=== PATIENT | female | born 2000 | race Caucasian/White ===

== ENCOUNTER 2018-02-18 16:50 | Emergency (ER) | payer OTHER, SELFPAY ==
[2018-02-18 18:04] LABS: Absolute Lymphocytes (CBC) 1.6 K/uL (0.7-4.9); Absolute Monocytes 0.4 K/uL (0.1-1.3); Absolute Neutrophil 4.5 K/uL (1.8-8.0); Basophils % 0.6 % (0-1.3); Eosinophils % 1.1 % (0-4.4); Hematocrit 41.1 % (36.0-45.0); Lymphocytes % 23.8 % (15.3-44.8); MCH 32.7 pg (27.0-35.0); MCV 93.4 fL (80-100); MPV 8.5 fL (7.6-11.3); Monocytes % 6.7 % (3.3-12.3)
[2018-02-18 18:20] LABS: Urine Blood 2+ (NEG); Urine Glucose NEGATIVE (NEG); Urine Protein NEGATIVE (NEG); Urine Specific Gravity >1.030 (1.005-1.030); Urine pH 5.5 (5.0-7.0)
[2018-02-18 18:27] LABS: BUN Blood Urea Nitrogen 15 mg/dL (7-18); Bicarbonate 25 mmol/L (21-32); Glucose Level 87 mg/dL (74-106); Potassium 3.6 mmol/L (3.5-5.1); Sodium Level 142 mmol/L (136-145)
[2018-02-18 18:34] LABS: HCG, Quantitative < 1 mIU/mL (1-3)
--- NOTE | 2018-02-18 18:42 | ER ---
Nurse's Notes [facility] Name: Codie Garcia Age: 17 yrs Sex: Female : 2000 Arrival Date: 02/18/2018 Time: 16:51 Bed 18 Private MD: None, None Diagnosis: Other abnormal uterine and vaginal bleeding Presentation: 02/18 16:57 Presenting complaint: Patient states: "I've been thinking i'm for the past two ss weeks" Pt reports 4 positive UPT at home since yesterday. "the problem is I've been spotting since yesterday". Transition of care: patient was not received from another setting of care. Onset of symptoms was February 17, 2018. Risk Assessment: Do you want to hurt yourself or someone else? Patient reports no desire to harm self or others. Initial Sepsis Screen: Does the patient meet any 2 criteria? No. Patient's initial sepsis screen is negative. Does the patient have a suspected source of infection? No. Patient's initial sepsis screen is negative. Care prior to arrival: None. 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 - Social history:: Smoking status: Patient/guardian denies using tobacco. - Ebola Screening: : Patient denies exposure to infectious person Patient denies travel to an Ebola-affected area in the 21 days before illness onset. Screenin:22 Abuse screen: Denies threats or abuse. Nutritional screening: No deficits noted. em Tuberculosis screening: No symptoms or risk factors identified. Fall Risk None identified. Assessment: 17:29 General: Appears in no apparent distress. comfortable, Behavior is calm, cooperative, em Reports had test yesterday and was positive, LMP was 4.5 weeks ago, denies pain. Pain: Denies pain. Neuro: Level of Consciousness is awake, alert, obeys commands, Oriented to person, place, time, situation. Cardiovascular: Capillary refill < 3 seconds Patient's skin is warm and dry. Respiratory: Airway is patent Respiratory effort is even, unlabored, Respiratory pattern is regular, symmetrical. GI: Abdomen is flat. : Urine is clear. Derm: Skin is intact, Skin is pink, warm \\T\\ dry. Musculoskeletal: Range of motion: intact in all extremities. 17:35 General: The previous assessment is accurate. Call light remains within reach. . ss 18:22 Reassessment: Patient appears in no apparent distress at this time. Patient and/or em family updated on plan of care and expected duration. Pain level reassessed. Patient is alert, oriented x 3, equal unlabored respirations, skin warm/dry/pink. 18:50 Reassessment: Patient appears in no apparent distress at this time. Patient and/or em family updated on plan of care and expected duration. Pain level reassessed. Patient is alert, oriented x 3, equal unlabored respirations, skin warm/dry/pink. Vital Signs: 16:59 BP 123 / 74; Pulse 79; Resp 16; Temp 98.4(TE); Pulse Ox 98% ; Height 5 ft. 2 in. ss (157.48 cm); Pain 0/10; 18:47 BP 128 / 76; Pulse 73; Resp 17; Pulse Ox 99% on R/A; Pain 0/10; em ED Course: 16:51 Patient arrived in ED. sb2 16:52 None, None is Private Physician. sb2 16:59 Triage completed. ss 16:59 Arm band placed on left wrist. ss 17:05 Maxwell Green PA is PHCP. cp 17:05 Nick Lebron MD is Attending Physician. cp 17:25 Jignesh Lora LVN is Primary Nurse. em 17:40 Missed attempt(s): 20 gauge in right antecubital area. Bleeding controlled, band aid dh3 applied, catheter tip intact. 17:55 Initial lab(s) drawn, by me, sent to lab. Missed attempt(s): 22 gauge in left dh3 antecubital area. Bleeding controlled, band aid applied, catheter tip intact. 18:22 Patient has correct armband on for positive identification. Placed in gown. Bed in low em position. Call light in reach. Adult w/ patient. 18:22 No provider procedures requiring assistance completed. em 18:49 Patient did not have IV access during this emergency room visit. em Administered Medications: No medications were administered Outcome: 18:41 Discharge ordered by . carolyn 18:49 Discharged to home ambulatory. em 18:49 Condition: good 18:49 Discharge instructions given to patient, Instructed on discharge instructions, follow up and referral plans. Demonstrated understanding of instructions, follow-up care. 18:51 Patient left the ED. em Signatures: Jignesh Lora LVN LVN Carolann Elias RN RN Maxwell Pink, PA PA Shaniqua Shepherd 3 Mary Alvarado sb2
--- NOTE | 2018-02-18 18:42 | EDPHYS ---
Physician Documentation [facility] Name: Codie Garcia Age: 17 yrs Sex: Female : 2000 Arrival Date: 02/18/2018 Time: 16:51 Bed 18 Private MD: None, None ED Physician Nick Lebron HPI: 02/18 17:23 This 17 yrs old Female presents to ER via Ambulatory with complaints of cp Test. 17:23 The patient presents with vaginal bleeding that is spotting. cp 17:23 Onset: The symptoms/episode began/occurred today. The patient's method of control cp includes nothing. Patient presents to ED with concern for possible and reports vaginal spotting. Took 4 home tests that were reportedly positive. 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 - Social history:: Smoking status: Patient/guardian denies using tobacco. - Ebola Screening: : Patient denies exposure to infectious person Patient denies travel to an Ebola-affected area in the 21 days before illness onset. ROS: 17:30 Constitutional: Negative for body aches, chills, fever, poor PO intake. cp 17:30 Eyes: Negative for injury, pain, redness, and discharge. cp 17:30 ENT: Negative for drainage from ear(s), ear pain, sore throat, difficulty swallowing, cp difficulty handling secretions. 17:30 Cardiovascular: Negative for chest pain. 17:30 Respiratory: Negative for cough, shortness of breath, wheezing. 17:30 Abdomen/GI: Negative for abdominal pain, nausea, vomiting, and diarrhea. 17:30 : Positive for vaginal bleeding, Negative for urinary symptoms. 17:30 Skin: Negative for cellulitis, rash. 17:30 Neuro: Negative for dizziness, syncope, near syncope, weakness. 17:30 All other systems are negative. Exam: 17:35 Constitutional: The patient appears in no acute distress, alert, awake, non-toxic, well cp developed, well nourished. 17:35 Head/Face: Normocephalic, atraumatic. cp 17:35 Eyes: Periorbital structures: appear normal, Conjunctiva: normal, no exudate, no cp injection, Lids and lashes: appear normal, bilaterally. 17:35 ENT: External ear(s): are unremarkable, Nose: is normal, Mouth: is normal, Posterior pharynx: is normal, airway is patent. 17:35 Chest/axilla: Inspection: normal, Palpation: is normal, no crepitus, no tenderness. 17:35 Cardiovascular: Rate: normal, Rhythm: regular. 17:35 Respiratory: the patient does not display signs of respiratory distress, Respirations: normal, no use of accessory muscles, no retractions, no splinting, no tachypnea, labored breathing, is not present, Breath sounds: are clear throughout, no decreased breath sounds, no stridor, no wheezing. 17:35 Abdomen/GI: Inspection: abdomen appears normal, Bowel sounds: active, all quadrants, Palpation: abdomen is soft and non-tender, in all quadrants, voluntary guarding, is not appreciated, involuntary guarding, is not appreciated. 17:35 Back: pain, is absent, ROM is normal. 17:35 Skin: cellulitis, is not appreciated, no rash present. 17:35 Neuro: Orientation: to person, place \T\ time. Mentation: is normal, Cerebellar function: cp is grossly normal, Motor: moves all fours, strength is normal, Sensation: no obvious gross deficits. Vital Signs: 16:59 BP 123 / 74; Pulse 79; Resp 16; Temp 98.4(TE); Pulse Ox 98% ; Height 5 ft. 2 in. ss (157.48 cm); Pain 0/10; 18:47 BP 128 / 76; Pulse 73; Resp 17; Pulse Ox 99% on R/A; Pain 0/10; em MDM: 17:05 Patient medically screened. cp 17:30 Differential diagnosis: ectopic , molar preganancy, ovarian cyst, pelvic cp inflammatory disease, urinary tract infection, vaginosis. 18:40 Data reviewed: vital signs, nurses notes, lab test result(s), and as a result, I will cp discharge patient. 18:40 Counseling: I had a detailed discussion with the patient and/or guardian regarding: the cp historical points, exam findings, and any diagnostic results supporting the discharge/admit diagnosis, lab results, to return to the emergency department if symptoms worsen or persist or if there are any questions or concerns that arise at home, Labs reviewed and discussed with patient indicating negative . No complaints of pain or concern for STD. Will discharge to home for continued monitoring. 02/18 17:24 Order name: Quantitative Hcg; Complete Time: 18:38 02/18 17:24 Order name: Abo/rh Typing; Complete Time: 18:18 cp 02/18 18:18 Interpretation: Reviewed. 02/18 17:24 Order name: Basic Metabolic Panel; Complete Time: 18:38 02/18 17:24 Order name: CBC with Diff; Complete Time: 18:18 02/18 18:11 Order name: Urine Dipstick--Ancillary (enter results); Complete Time: 18:38 eb 02/18 18:11 Order name: Urine --Ancillary (enter results); Complete Time: 18:38 02/18 18:38 Interpretation: Reviewed. 02/18 17:24 Order name: Urine Test (obtain specimen); Complete Time: 17:54 02/18 17:24 Order name: Labs collected and sent; Complete Time: 17:55 02/18 17:24 Order name: NPO; Complete Time: 17:54 02/18 17:24 Order name: Urine Dipstick-Ancillary (obtain specimen); Complete Time: 17:54 cp Administered Medications: No medications were administered Disposition: 02/18/18 18:41 Discharged to Home. Impression: Other abnormal uterine and vaginal bleeding. - Condition is Stable. - Discharge Instructions: Abnormal Uterine Bleeding. - Medication Reconciliation Form, Thank You Letter, Antibiotic Education, Prescription Opioid Use form. - Follow up: Private Physician; When: As needed; Reason: if symptoms worsen. - Problem is new. - Symptoms are unchanged. Addendum: 02/19/2018 20:26 Co-signature as Attending Physician, Nick Lebron MD. m a2 Signatures: Dispatcher [employer] EDJignesh Chen, HIDE SORTER HIDE SORTER Carolann Elias RN RN Maxwell Pink PA PA Nick Mercado MD MD dc2 Corrections: (The following items were deleted from the chart) 02/18 18:49 17:24 IV Saline Lock ordered. cp em 18:51 18:41 02/18/2018 18:41 Discharged to Home. Impression: Other abnormal uterine and em vaginal bleeding. Condition is Stable. Forms are Medication Reconciliation Form, Thank You Letter, Antibiotic Education, Prescription Opioid Use. Follow up: Private Physician; When: As needed; Reason: if symptoms worsen. Problem is new. Symptoms are unchanged. cp
== END 2018-02-18 18:51 | disposition home or self-care (01) ==
LOC: ER 16:50
DX: N93.8 Other specified abnormal uterine and vaginal bleeding (principal)
CPT/HCPCS: 36415; 80048; 81003; 81025; 84702; 85025; 86900; 86901; 99283

== ENCOUNTER 2019-04-28 00:31 | Emergency (ER) | payer SELFPAY ==
--- NOTE | 2019-04-28 01:29 | ER ---
Nurse's Notes [facility] Name: Codie Garcia Age: 18 yrs Sex: Female : 2000 Arrival Date: 04/28/2019 Time: 00:34 Bed 24 Private MD: Diagnosis: Nausea with vomiting, unspecified Presentation: 04/28 00:54 Presenting complaint: Patient states: she is having nausea and vomiting. Pt took home test was positive. Pt wanted to know if she really is . Transition of care: patient was not received from another setting of care. Onset of symptoms was April 28, 2019. Risk Assessment: Do you want to hurt yourself or someone else? Patient reports no desire to harm self or others. Initial Sepsis Screen: Does the patient meet any 2 criteria? No. Patient's initial sepsis screen is negative. Does the patient have a suspected source of infection? No. Patient's initial sepsis screen is negative. Care prior to arrival: None. 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 - Social history:: Smoking status: Patient/guardian denies using tobacco. - Ebola Screening: : Patient negative for fever greater than or equal to 101.5 degrees Fahrenheit, and additional compatible Ebola Virus Disease symptoms Patient denies exposure to infectious person. Screenin:56 Abuse screen: Denies threats or abuse. Denies injuries from another. Nutritional screening: No deficits noted. Tuberculosis screening: No symptoms or risk factors identified. Fall Risk None identified. Assessment: 00:56 General: Appears in no apparent distress. Behavior is calm, cooperative, appropriate for age. Pain: Denies pain. Neuro: Level of Consciousness is awake, alert, obeys commands. Cardiovascular: Capillary refill < 3 seconds. Respiratory: Airway is patent Respiratory effort is even, unlabored, Respiratory pattern is regular, symmetrical. GI: Abdomen is flat, non-distended, Abd is soft and non tender X 4 quads. GI: Reports nausea, vomiting. : No signs and/or symptoms were reported regarding the genitourinary system. EENT: No signs and/or symptoms were reported regarding the EENT system. Derm: Skin is intact, is healthy with good turgor, Skin is pink, warm \T\ dry. normal. Musculoskeletal: Circulation, motion, and sensation intact. Vital Signs: 00:56 BP 105 / 76; Pulse 79; Resp 18; Temp 98.6; Pulse Ox 100% on R/A; wh ED Course: 00:34 Patient arrived in ED. ds1 00:49 Rob Posadas NP is PHCP. pm1 00:49 Howard Lo MD is Attending Physician. pm1 00:54 Ana Espino is Primary Nurse. wh 00:55 Triage completed. wh 00:58 Arm band placed on right wrist. wh 00:59 Patient has correct armband on for positive identification. Placed in gown. Bed in low wh position. Call light in reach. Side rails up X 1. Pulse ox on. NIBP on. 01:36 No provider procedures requiring assistance completed. Patient did not have IV access during this emergency room visit. Administered Medications: No medications were administered Outcome: 01:28 Discharge ordered by . pm1 01:36 Discharged to home ambulatory, with friend. 01:36 Condition: good 01:36 Discharge instructions given to patient, Instructed on discharge instructions, follow up and referral plans. POC Nausea and vomiting Demonstrated understanding of instructions, follow-up care, POC 01:37 Patient left the ED. Signatures: Marilee Bailon ds1 Rob Posadas NP NATURAL HISTORY COLLECTIONS CURATOR pm1 Ana Espino Corrections: (The following items were deleted from the chart) 02:59 00:54 Presenting complaint: Patient states: she is having nausea and vomiting. Pt took wh home test was positive
--- NOTE | 2019-04-28 01:29 | EDPHYS ---
Physician Documentation [facility] Name: Codie Garcia Age: 18 yrs Sex: Female : 2000 Arrival Date: 04/28/2019 Time: 00:34 Bed 24 Private MD: ED Physician Howard Lo HPI: 04/28 01:27 This 18 yrs old Female presents to ER via Ambulatory with complaints of pm1 Nausea/Vomiting. 01:27 The patient presents to the emergency department with Patient reports on and off nausea pm1 with vomiting for multiple months. Patient has three year old Implanon in left arm. Patient took a home test at home that was positive. Patient reports that she is just coming to the ER to verify if she is . 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 - Social history:: Smoking status: Patient/guardian denies using tobacco. - Ebola Screening: : Patient negative for fever greater than or equal to 101.5 degrees Fahrenheit, and additional compatible Ebola Virus Disease symptoms Patient denies exposure to infectious person. ROS: 01:27 Constitutional: Negative for fever, chills, and weight loss. pm1 01:27 Back: Negative for injury and pain, : Negative for injury, bleeding, discharge, and swelling, MS/Extremity: Negative for injury and deformity, Skin: Negative for injury, rash, and discoloration, Neuro: Negative for headache, weakness, numbness, tingling, and seizure. 01:27 Abdomen/GI: Positive for nausea and vomiting, Negative for abdominal pain, diarrhea, constipation. 01:27 All other systems are negative. Exam: 01:27 Constitutional: This is a well developed, well nourished patient who is awake, alert, pm1 and in no acute distress. Head/Face: Normocephalic, atraumatic. Chest/axilla: Normal chest wall appearance and motion. Nontender with no deformity. No lesions are appreciated. Cardiovascular: Regular rate and rhythm with a normal S1 and S2. No gallops, murmurs, or rubs. Normal PMI, no JVD. No pulse deficits. Respiratory: Lungs have equal breath sounds bilaterally, clear to auscultation and percussion. No rales, rhonchi or wheezes noted. No increased work of breathing, no retractions or nasal flaring. Abdomen/GI: Soft, non-tender, with normal bowel sounds. No distension or tympany. No guarding or rebound. No evidence of tenderness throughout. Back: No spinal tenderness. No costovertebral tenderness. Full range of motion. Skin: Warm, dry with normal turgor. Normal color with no rashes, no lesions, and no evidence of cellulitis. MS/ Extremity: Pulses equal, no cyanosis. Neurovascular intact. Full, normal range of motion. 01:27 Neuro: Orientation: is normal, Motor: is normal, no acute changes, moves all fours, Gait: is steady, at a normal pace, without difficulty. Vital Signs: 00:56 BP 105 / 76; Pulse 79; Resp 18; Temp 98.6; Pulse Ox 100% on R/A; wh MDM: 01:02 Patient medically screened. pm1 01:27 Data reviewed: vital signs. Data interpreted: Pulse oximetry: on room air is 100 %. pm1 Interpretation: normal. Counseling: I had a detailed discussion with the patient and/or guardian regarding: the historical points, exam findings, and any diagnostic results supporting the discharge/admit diagnosis, lab results, the need for outpatient follow up, a family practitioner, an OB/Gyne specialist, to return to the emergency department if symptoms worsen or persist or if there are any questions or concerns that arise at home. 04/28 01:00 Order name: Urine Dipstick--Ancillary (enter results) lt1 04/28 01:01 Order name: Urine --Ancillary (enter results) lt1 Administered Medications: No medications were administered Disposition: 09:00 Co-signature as Attending Physician, Howard Lo MD I agree with the assessment and wa plan of care. Disposition: 04/28/19 01:28 Discharged to Home. Impression: Nausea with vomiting, unspecified. - Condition is Stable. - Discharge Instructions: Nausea and Vomiting, Adult. - Medication Reconciliation Form, Thank You Letter, Antibiotic Education, Prescription Opioid Use form. - Follow up: Emergency Department; When: As needed; Reason: Worsening of condition. Follow up: Private Physician; When: 2 - 3 days; Reason: Recheck today's complaints, Continuance of care, Re-evaluation by your physician. - Problem is new. - Symptoms have improved. Signatures: Dispatcher [employer] EDMS Rob Posadas, SCRAP BUNCH MAKER SCRAP BUNCH MAKER pm1 Ana Espino wh Howard Lo MD MD wa Corrections: (The following items were deleted from the chart) 01:37 01:28 04/28/2019 01:28 Discharged to Home. Impression: Nausea with vomiting, wh unspecified. Condition is Stable. Forms are Medication Reconciliation Form, Thank You Letter, Antibiotic Education, Prescription Opioid Use. Follow up: Emergency Department; When: As needed; Reason: Worsening of condition. Follow up: Private Physician; When: 2 - 3 days; Reason: Recheck today's complaints, Continuance of care, Re-evaluation by your physician. Problem is new. Symptoms have improved. pm1
[2019-04-28 01:45] LABS: Urine Specific Gravity 1.025 (1.005-1.030)
[2019-04-28 01:45] LABS: Urine Blood NEGATIVE (NEG); Urine Glucose NEGATIVE (NEG); Urine Protein NEGATIVE (NEG); Urine Specific Gravity 1.025 (1.005-1.030)
[2019-04-28 02:43] VITALS: BP 105/76; TEMP 98.6; O2SAT 100
== END 2019-04-28 01:37 | disposition home or self-care (01) ==
LOC: ER 00:31
DX: R11.2 Nausea with vomiting, unspecified (principal)
CPT/HCPCS: 81003; 81025; 99283

== ENCOUNTER 2020-07-20 14:54 | Emergency (ER) | payer SELFPAY ==
[2020-07-20] MEDS ORDERED: ACETAMINOPHEN 325 MG TABLET ONE (15:49)
--- NOTE | 2020-07-20 16:10 | EDPHYS ---
Physician Documentation [facility] Name: Codie Garcia Age: 19 yrs Sex: Female : 2000 Arrival Date: 07/20/2020 Time: 14:57 Bed 14 Private MD: ED Physician Jacob Conroy HPI: 07/20 16:01 This 19 yrs old Female presents to ER via Ambulatory with complaints of jmm Nausea, Sore Throat, Fatigue. 16:01 The patient presents to the emergency department with nausea. Onset: The jmm symptoms/episode began/occurred gradually, 1 day(s) ago. Possible causes: strep. The symptoms are aggravated by nothing. The symptoms are alleviated by nothing. Associated signs and symptoms: Pertinent positives: fever. Patient states symptoms began yesterday. Denies SOB. 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 - Social history:: Smoking status: Patient reports the use of cigarette tobacco products, denies chronic smoking, but will smoke occasionally. ROS: 16:01 Cardiovascular: Negative for chest pain, palpitations, and edema, Respiratory: Negative jmm for shortness of breath, cough, wheezing, and pleuritic chest pain. 16:01 Constitutional: Positive for fever. 16:01 ENT: Positive for sore throat. 16:01 All other systems are negative. Exam: 16:01 Constitutional: This is a well developed, well nourished patient who is awake, alert, jmm and in no acute distress. Head/Face: atraumatic. Eyes: EOMI, no conjunctival erythema appreciated 16:01 Neck: Trachea midline, Supple Chest/axilla: Normal chest wall appearance and motion. Cardiovascular: Regular rate and rhythm. No edema appreciated Respiratory: Normal respirations, no respiratory distress appreciated Abdomen/GI: Non distended, soft Back: Normal ROM Skin: General appearance color normal MS/ Extremity: Moves all extremities, no obvious deformities appreciated, no edema noted to the lower extremities Neuro: Awake and alert, normal gait Psych: Behavior is normal, Mood is normal, Patient is cooperative and pleasant 16:01 ENT: Posterior pharynx: Tonsils: bilaterally enlarged, with erythema, with exudate, erythema, that is moderate, peritonsillar mass, is not appreciated. Vital Signs: 15:09 BP 115 / 72; Pulse 112; Resp 20; Temp 100.0(O); Pulse Ox 98% on R/A; Weight 61.69 kg; em Height 5 ft. 2 in. (157.48 cm); Pain 5/10; 16:22 BP 116 / 70; Pulse 97; Resp 20; Temp 98.7; Pulse Ox 100% on R/A; zb 15:09 Body Mass Index 24.87 (61.69 kg, 157.48 cm) em MDM: 15:43 Patient medically screened. [facility] 16:09 Data reviewed: vital signs, nurses notes. Counseling: I had a detailed discussion with [facility] the patient and/or guardian regarding: the historical points, exam findings, and any diagnostic results supporting the discharge/admit diagnosis, lab results, the need for outpatient follow up, to return to the emergency department if symptoms worsen or persist or if there are any questions or concerns that arise at home. ED course: Patient is alert and non toxic in appearance in the ED. No signs of resp distress. Advised to follow up with pcp and otherwise given strict return precautions. Patient understood and agrees with the plan of care. . 12 15:31 Order name: Strep [facility] 07/20 15:31 Order name: COVID-19 [facility] 07/20 15:31 Order name: Flu [facility] 07/20 16:23 Order name: Urine Dipstick--Ancillary (enter results) 07/20 16:23 Order name: Urine --Ancillary (enter results) bd Administered Medications: 15:36 Drug: Tylenol 650 mg Route: PO; zb 16:22 Follow up: Response: Temperature is decreased zb 16:22 Drug: Bicillin L-A 1.2 million units Route: IM; Site: right gluteus; zb 16:30 Follow up: Response: No adverse reaction zb Disposition: 17:55 Co-signature as Attending Physician, Jacob Conroy MD Did not see or evaluate patient. ps1 Signature for administrative purposes. . Disposition: 07/20/20 16:10 Discharged to Home. Impression: Acute pharyngitis. - Condition is Stable. - Discharge Instructions: Pharyngitis. - Medication Reconciliation Form, Thank You Letter, Antibiotic Education, Prescription Opioid Use, Work release form form. - Follow up: Private Physician; When: 2 - 3 days; Reason: Recheck today's complaints, Continuance of care, Re-evaluation by your physician. Signatures: Dispatcher [employer] EDGanesh Worthington PA PA jmm Munoz, Edgar, RN RN Jacob Coto MD MD ps1 Brown, Zipporah, RN RN zb Corrections: (The following items were deleted from the chart) 16:31 16:10 07/20/2020 16:10 Discharged to Home. Impression: Acute pharyngitis. Condition is zb Stable. Forms are Medication Reconciliation Form, Thank You Letter, Antibiotic Education, Prescription Opioid Use. Follow up: Private Physician; When: 2 - 3 days; Reason: Recheck today's complaints, Continuance of care, Re-evaluation by your physician. silvino
--- NOTE | 2020-07-20 16:10 | ER ---
Nurse's Notes [facility] Name: Codie Garcia Age: 19 yrs Sex: Female : 2000 Arrival Date: 07/20/2020 Time: 14:57 Bed 14 Private MD: Diagnosis: Acute pharyngitis Presentation: 07/20 15:09 Chief complaint: Patient states: sore throat that started yesterday, denies fever, em reports N/V. Coronavirus screen: Client denies travel out of the [place] in the last 14 days. Ebola Screen: Patient negative for fever greater than or equal to 101.5 degrees Fahrenheit, and additional compatible Ebola Virus Disease symptoms Patient denies exposure to infectious person. Patient denies travel to an Ebola-affected area in the 21 days before illness onset. No symptoms or risks identified at this time. Initial Sepsis Screen: Does the patient meet any 2 criteria? HR > 90 bpm. No. Patient's initial sepsis screen is negative. Does the patient have a suspected source of infection? No. Patient's initial sepsis screen is negative. Risk Assessment: Do you want to hurt yourself or someone else? Patient reports no desire to harm self or others. Onset of symptoms was July 19, 2020. 15:09 Method Of Arrival: Ambulatory em 15:09 Acuity: RICK 4 em Triage Assessment: 16:05 GI: Reports nausea, vomiting. 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 - Social history:: Smoking status: Patient reports the use of cigarette tobacco products, denies chronic smoking, but will smoke occasionally. Screenin:30 Abuse screen: Denies threats or abuse. Denies injuries from another. Nutritional zb screening: No deficits noted. Tuberculosis screening: No symptoms or risk factors identified. Fall Risk None identified. Assessment: 15:30 General: Appears in no apparent distress. comfortable, Behavior is calm, cooperative, zb appropriate for age. Pain: Complains of pain in throat Aggravated by eating, drinking. Neuro: Level of Consciousness is awake, alert, obeys commands, Oriented to person, place, time, situation. Cardiovascular: Patient's skin is warm and dry. Respiratory: Airway is patent Respiratory effort is even, unlabored, Respiratory pattern is regular, Breath sounds are clear bilaterally. GI: Abdomen is flat, non-distended, Patient currently denies diarrhea, nausea, vomiting, decreased appetite. : No signs and/or symptoms were reported regarding the genitourinary system. EENT: Throat is reddened has patchy exudate has enlarged tonsils bilaterally with gag reflex present. Derm: Skin is intact, is healthy with good turgor, Skin is normal. Musculoskeletal: Capillary refill < 3 seconds, in bilateral Range of motion: intact in all extremities. 16:23 Reassessment: d/c instructions given. pt verbalized understand. d/c pending 15min wait zb time for IM. Vital Signs: 15:09 BP 115 / 72; Pulse 112; Resp 20; Temp 100.0(O); Pulse Ox 98% on R/A; Weight 61.69 kg; em Height 5 ft. 2 in. (157.48 cm); Pain 5/10; 16:22 BP 116 / 70; Pulse 97; Resp 20; Temp 98.7; Pulse Ox 100% on R/A; zb 15:09 Body Mass Index 24.87 (61.69 kg, 157.48 cm) em ED Course: 14:57 Patient arrived in ED. rg4 15:10 Triage completed. em 15:10 Arm band placed on. em 15:29 G[facility]h Thomas [facility] is [facility] 15:29 Jacob Conroy MD is Attending Physician. [facility] 15:30 Patient has correct armband on for positive identification. Bed in low position. Call zb light in reach. Side rails up X 1. 15:31 Honey Sharp, GHULAM is Primary Nurse. zb 15:40 COVID swab sent to lab. Flu and/or RSV swab sent to lab. Strep swab sent to lab. jp3 16:30 No provider procedures requiring assistance completed. Patient did not have IV access zb during this emergency room visit. Administered Medications: 15:36 Drug: Tylenol 650 mg Route: PO; zb 16:22 Follow up: Response: Temperature is decreased zb 16:22 Drug: Bicillin L-A 1.2 million units Route: IM; Site: right gluteus; zb 16:30 Follow up: Response: No adverse reaction zb Outcome: 16:10 Discharge ordered by . silvino 16:30 Discharged to home ambulatory. clau 16:30 Condition: stable 16:30 Discharge instructions given to patient, Instructed on discharge instructions, follow up and referral plans. Demonstrated understanding of instructions, follow-up care. 16:31 Patient left the ED. clau Addendum: 07/22/2020 17:20 Addendum: COVID-19 Result: Negative result given to RN to notify pt. Left voice mail. a a5 17:51 Addendum: COVID-19 Result: Negative result given to RN to notify pt. Notified pt of a a5 negative COVID 19 swab results. Pt advised that even with a negative test result they should remain in isolation until symptom free for 3 days without medication. Pt also advised to return to the ED for worsening symptoms. Signatures: Ganesh Thomas PA PA jmm Munoz, Edgar, RN RN em Calderon, Audri, RN RN aa5 Garcia, Rubi rg4 Pisarski, Jacob jp3 Honey Sharp RN RN zb
[2020-07-20] MEDS ORDERED: PEN G BENZ LA 1.2MU/2ML SYRINGE IM ONE (16:28)
[2020-07-20 16:35] LABS: Urine Blood 3+ (NEG); Urine Glucose NEGATIVE (NEG); Urine Protein 1+ (NEG)
[2020-07-23 10:09] VITALS: BP 116/70; TEMP 98.7; O2SAT 100
== END 2020-07-20 16:31 | disposition home or self-care (01) ==
LOC: ER 14:54
DX: J02.9 Acute pharyngitis, unspecified (principal); Z20.828 Contact with and (suspected) exposure to other viral communicable diseases; Z72.0 Tobacco use
CPT/HCPCS: 81003; 81025; 87081; 87804; 96372; 99283; J0561; U0002

== ENCOUNTER 2020-09-14 23:03 | Emergency (ER) | payer SELFPAY ==
[2020-09-14] MEDS ORDERED: ONDANSETRON 4 MG (ODT) TAB ONE (23:51)
--- NOTE | 2020-09-15 00:19 | EDPHYS ---
Physician Documentation [facility] Name: Codie Garcia Age: 19 yrs Sex: Female : 2000 Arrival Date: 09/14/2020 Time: 23:04 Bed 7 Private MD: ED Physician Nick Lebron HPI: 09/14 23:34 This 19 yrs old Female presents to ER via Ambulatory with complaints of ma2 Vomiting, Headache, ALL OVER BODY PAIN. 23:34 The patient presents to the emergency department with nausea, vomiting, diarrhea. ma2 Onset: The symptoms/episode began/occurred gradually, 1 day(s) ago. Associated signs and symptoms: Pertinent negatives: abdominal pain, constipation, dysuria, flatulence, GI bleeding, hematuria. The patient has experienced similar episodes in the past. syx started after she ate chicken, . 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 - Social history:: Smoking status: Patient/guardian denies using alcohol, street drugs, The patient lives with family. - Family history:: not pertinent. ROS: 23:34 Constitutional: Negative for fever, chills, and weight loss. ma2 23:34 All other systems are negative. Exam: 23:34 Constitutional: This is a well developed, well nourished patient who is awake, alert, ma2 and in no acute distress. Chest/axilla: Normal chest wall appearance and motion. Nontender with no deformity. No lesions are appreciated. Cardiovascular: Regular rate and rhythm with a normal S1 and S2. No gallops, murmurs, or rubs. Normal PMI, no JVD. No pulse deficits. Respiratory: Lungs have equal breath sounds bilaterally, clear to auscultation and percussion. No rales, rhonchi or wheezes noted. No increased work of breathing, no retractions or nasal flaring. Abdomen/GI: Soft, non-tender, with normal bowel sounds. No distension or tympany. No guarding or rebound. No evidence of tenderness throughout. Skin: Warm, dry with normal turgor. Normal color with no rashes, no lesions, and no evidence of cellulitis. MS/ Extremity: Pulses equal, no cyanosis. Neurovascular intact. Full, normal range of motion. Neuro: Awake and alert, GCS 15, oriented to person, place, time, and situation. Cranial nerves II-XII grossly intact. Motor strength 5/5 in all extremities. Sensory grossly intact. Cerebellar exam normal. Normal gait. Vital Signs: 23:23 Weight 61.23 kg; Height 5 ft. 2 in. (157.48 cm); rv 09/15 00:29 BP 106 / 66; Pulse 80; Resp 18; Pulse Ox 99% on R/A; rv 09/14 23:23 Body Mass Index 24.69 (61.23 kg, 157.48 cm) rv MDM: 09/14 23:16 Patient medically screened. ma2 23:34 Differential diagnosis: Nonspecific abd pain, gastritis, viral gastroenteritis, ma2 gastroenteritis. Data reviewed: vital signs, nurses notes. Counseling: I had a detailed discussion with the patient and/or guardian regarding: the historical points, exam findings, and any diagnostic results supporting the discharge/admit diagnosis, the presence of at least one elevated blood pressure reading (>120/80) during this emergency department visit, the need for outpatient follow up. Response to treatment: the patient's symptoms have resolved after treatment. ED course: no abd pain, all symptoms resolved aftet odt zofran, tolerates po . 09/14 23:44 Order name: PO challenge; Complete Time: 00:23 ma2 Administered Medications: 23:37 Drug: Ondansetron (Zofran) 4 mg Route: PO; rv 09/15 00:23 Follow up: Response: Marked relief of symptoms rv 00:28 Drug: Tylenol 1000 mg Route: PO; rv 00:29 Follow up: Response: Medication administered at discharge. rv Disposition: 09/15/20 00:18 Discharged to Home. Impression: Vomiting, unspecified. - Condition is Stable. - Discharge Instructions: Nausea and Vomiting, Adult. - Prescriptions for Zofran 4 mg Oral Tablet - take 1 tablet by ORAL route every 12 hours As needed; 6 tablet. - Medication Reconciliation Form, Thank You Letter, Antibiotic Education, Prescription Opioid Use, Work release form form. - Follow up: Private Physician; When: Tomorrow; Reason: Recheck today's complaints, Continuance of care. Signatures: Yuri Pa RN RN Nick Lebron MD MD ma2 Yonathan Roberto RN RN rv Corrections: (The following items were deleted from the chart) 00:29 00:18 09/15/2020 00:18 Discharged to Home. Impression: Vomiting, unspecified. Condition rv is Stable. Prescriptions for Zofran 4 mg Oral Tablet - take 1 tablet by ORAL route every 12 hours As needed; 6 tablet. and Forms are Medication Reconciliation Form, Thank You Letter, Antibiotic Education, Prescription Opioid Use. Follow up: Private Physician; When: Tomorrow; Reason: Recheck today's complaints, Continuance of care. ma2
--- NOTE | 2020-09-15 00:19 | ER ---
Nurse's Notes [facility] Name: Codie Garcia Age: 19 yrs Sex: Female : 2000 Arrival Date: 09/14/2020 Time: 23:04 Bed 7 Private MD: Diagnosis: Vomiting, unspecified Presentation: 09/14 23:23 Chief complaint: Patient states: I WOKE UP WITH PAIN ALL OVER, BUT MY HEADACHE HAS BEEN rv MY PROBLEM ALL DAY. I WAS SENT HOME FROM WORK, AND I HAVE THE WORST HEADACHE. I HAD DIARRHEA TWO DAYS AGO, TODAY I'VE BEEN THROWING UP AND WAS NOT ABLE TO HOLD ANYTHING DOWN. DENIES FEVER, COUGH AND CONGESTION. Coronavirus screen: Client denies travel out of the [place] in the last 14 days. headache, muscle pain. Ebola Screen: No symptoms or risks identified at this time. Initial Sepsis Screen: Does the patient meet any 2 criteria? No. Patient's initial sepsis screen is negative. Does the patient have a suspected source of infection? No. Patient's initial sepsis screen is negative. Risk Assessment: Do you want to hurt yourself or someone else? Patient reports no desire to harm self or others. Onset of symptoms was September 14, 2020 at 08:00. 23:23 Method Of Arrival: Ambulatory rv 23:23 Acuity: RICK 3 rv 23:26 Chief complaint: Headache, N/V, pain all over, body aches. Coronavirus screen: Client sg presents with at least one sign or symptom that may indicate coronavirus-19. Standard/surgical mask placed on the client. Provider contacted for isolation considerations. Ebola Screen: Patient negative for fever greater than or equal to 101.5 degrees Fahrenheit, and additional compatible Ebola Virus Disease symptoms Patient denies exposure to infectious person. Patient denies travel to an Ebola-affected area in the 21 days before illness onset. No symptoms or risks identified at this time. Initial Sepsis Screen: Does the patient meet any 2 criteria? No. Patient's initial sepsis screen is negative. Does the patient have a suspected source of infection? No. Patient's initial sepsis screen is negative. Risk Assessment: Do you want to hurt yourself or someone else? Patient reports no desire to harm self or others. Onset of symptoms was September 14, 2020. Care prior to arrival: None. Transition of care: patient was not received from another setting of care. 23:26 Acuity: RICK 3 sg 23:26 Method Of Arrival: Ambulatory sg Triage Assessment: 23:30 General: Appears uncomfortable, ill, Behavior is calm, cooperative. Pain: Complains of rv pain in HEADACHE. Neuro: Level of Consciousness is awake, alert, obeys commands, Oriented to person, place, time, situation, Reports headache that is the "worst ever". Cardiovascular: Patient's skin is warm and dry. Respiratory: Airway is patent Respiratory effort is even, unlabored, Denies cough, shortness of breath. GI: Abdomen is flat, non-distended, Reports nausea, vomiting. 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 - Social history:: Smoking status: Patient/guardian denies using alcohol, street drugs, The patient lives with family. - Family history:: not pertinent. Screenin:30 Abuse screen: Denies threats or abuse. Denies injuries from another. Nutritional rv screening: No deficits noted. Tuberculosis screening: No symptoms or risk factors identified. Fall Risk None identified. Vital Signs: 23:23 Weight 61.23 kg; Height 5 ft. 2 in. (157.48 cm); rv 02/09 00:29 BP 106 / 66; Pulse 80; Resp 18; Pulse Ox 99% on R/A; rv 02/ 23:23 Body Mass Index 24.69 (61.23 kg, 157.48 cm) rv ED Course: 09/14 23:04 Patient arrived in ED. cf2 23:13 Yonathan Roberto, GHULAM is Primary Nurse. rv 23:16 Nick Lebron MD is Attending Physician. ma2 23:27 Triage completed. sg 23:27 Arm band placed on. sg 23:30 No provider procedures requiring assistance completed. rv 23:31 Patient has correct armband on for positive identification. Placed in gown. Bed in low rv position. Call light in reach. Pulse ox on. NIBP on. Administered Medications: 23:37 Drug: Ondansetron (Zofran) 4 mg Route: PO; rv 02 00:23 Follow up: Response: Marked relief of symptoms rv 00:28 Drug: Tylenol 1000 mg Route: PO; rv 00:29 Follow up: Response: Medication administered at discharge. rv Outcome: 00:18 Discharge ordered by MD. bunch 00:29 Patient left the ED. rv Signatures: Yuri Pa RN RN Nick Lebron MD MD tn2 Yonathan Roberto RN RN Baldo [facility]
[2020-09-15] MEDS ORDERED: ACETAMINOPHEN 500 MG TAB ONE (00:41)
[2020-09-15 01:08] VITALS: BP 106/66; O2SAT 99
== END 2020-09-15 00:29 | disposition home or self-care (01) ==
LOC: ER 23:03
DX: R11.2 Nausea with vomiting, unspecified (principal)
CPT/HCPCS: 99283

== ENCOUNTER 2022-01-16 13:22 | Emergency (ER) | payer SELFPAY ==
--- OUTSIDE RECORDS SUMMARY | 2022-01-16 13:26 | XMS REPORT | Continuity of Care Document ---
:2000 Author Organization [facility] t Address [address] [place] [address] [address]. [address] [place] [address] Care Team Providers Name Role Phone Pcp, Does Not Have A Primary Care Physician Jin PARMAR S Attending Clinician Unavailable Only, Db Test Attending Clinician Unavailable Shon MCGHEE Attending Clinician Unknown Attending Clinician Unavailable Mac KERR Attending Clinician Problems This patient has no known problems. Allergies, Adverse Reactions, Alerts This patient has no known allergies or adverse reactions. Social History Social Habit Start Date Stop Date Quantity Comments Source Exposure to Yes [facility] SARS-CoV-2 (event) [facility] Sex Assigned At [birth year] [facility] 00:00:00 00:00:00 [facility] Smoking Status Start Date Stop Date Source Unknown if ever smoked [facility] Medications Ordered Filled Start Stop Current Ordering Indication Dosage Frequency Signature Comments Components Source Medication Medication Date Date Medication? Clinician (SIG) Name Name No known No [facility] medications -09 ity of 19:03: [address] No known No [facility] medications -09 ity of 19:03: [address] Procedures This patient has no known procedures. Encounters Start End Encounter Admission Attending Care Care Encounter Source Date/Time Date/Time Type Type Clinicians Facility Department ID 2021-08-16 2021-08-16 Telephone RENETTA Abdi [id number] [facility] 00:00:00 00:00:00 Neena BEAN [id number] ity of [facility] [id number] Eulalio as [id number] [address] 2021-08-15 2021-08-15 Laboratory Only, Ang Db Test [facility] [id number] [facility] 19:00:00 19:29:13 Only [facility] [id number] ity of Unknown, Attending KAMRAN [id number] Nancy Campbell?BLEA [id number] [address] MEDICAL OFFICE BUILDING Results This patient has no known results.
[2022-01-16] MEDS ORDERED: ONDANSETRON 4 MG (ODT) TAB ONE (14:05)
--- NOTE | 2022-01-16 15:34 | RAD REPORT ---
EXAM DESCRIPTION: Abdiaziz Pa And Lat (2 Views)01/16/2022 3:02 pm CLINICAL HISTORY: Cough COMPARISON: 2017 FINDINGS: The lungs appear clear of acute infiltrate. The heart is normal size. Moderate scoliosis involves the spine IMPRESSION: No acute abnormalities displayed
--- NOTE | 2022-01-16 16:36 | ER ---
Nurse's Notes [facility] Name: Codie Garcia Age: 21 yrs Sex: Female : 2000 Arrival Date: 01/16/2022 Time: 13:25 Bed 12 Private MD: Diagnosis: Nausea with vomiting, unspecified;Diarrhea, unspecified;Acute upper respiratory infection, unspecified Presentation: 01/16 13:33 Chief complaint: Patient states: diarrhea, vomiting, headache, cough, congestion, sore aa5 throat, and chest pain when taking a deep breath. 13:33 Coronavirus screen: cough unrelated to allergies, diarrhea, headache, vomiting. Ebola aa5 Screen: No symptoms or risks identified at this time. Initial Sepsis Screen: Does the patient meet any 2 criteria? No. Patient's initial sepsis screen is negative. Does the patient have a suspected source of infection? No. Patient's initial sepsis screen is negative. Risk Assessment: Do you want to hurt yourself or someone else? Patient reports no desire to harm self or others. Onset of symptoms was January 2022. 13:33 Acuity: RICK 3 aa5 13:33 Method Of Arrival: Ambulatory aa5 Triage Assessment: 13:33 General: Appears uncomfortable, Behavior is calm, cooperative. Pain: Complains of pain aa5 in head Quality of pain is described as aching. EENT: Reports nasal congestion sore throat. Neuro: Level of Consciousness is awake, alert, obeys commands, Oriented to person, place, time, situation. Cardiovascular: Heart tones S1 S2 present Rhythm is regular. Respiratory: Reports cough Airway is patent Respiratory effort is even, unlabored, Respiratory pattern is regular, symmetrical, Breath sounds are clear bilaterally. GI: Abdomen is non-distended, Bowel sounds present X 4 quads. Abd is soft and non tender X 4 quads. Reports diarrhea, nausea, vomiting. : No signs and/or symptoms were reported regarding the genitourinary system. Derm: Skin is pink, warm \\T\\ dry. Musculoskeletal: Range of motion: intact in all extremities. 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 Screenin:35 Abuse screen: Denies threats or abuse. Nutritional screening: No deficits noted. aa5 Tuberculosis screening: No symptoms or risk factors identified. Fall Risk None identified. Assessment: 14:30 Reassessment: Patient is alert, oriented x 3, equal unlabored respirations, skin aa5 warm/dry/pink. 17:00 Reassessment: Patient is alert, oriented x 3, equal unlabored respirations, skin aa5 warm/dry/pink. Vital Signs: 13:33 BP 120 / 73; Pulse 85; Resp 20 S; Temp 98.9(O); Pulse Ox 99% on R/A; Weight 61.23 kg aa5 (R); Height 5 ft. 2 in. (157.48 cm) (R); 13:33 Body Mass Index 24.69 (61.23 kg, 157.48 cm) aa5 ED Course: 13:25 Patient arrived in ED. as 13:27 Camilla Bowles FNP-C is PHCP. kb 13:27 Augusto Rivera MD is Attending Physician. kb 13:33 Arm band placed on Patient placed in an exam room, on a stretcher. aa5 13:33 Patient has correct armband on for positive identification. aa5 13:56 Triage completed. aa5 14:00 Coby Velasquez, RN is Primary Nurse. aa5 14:00 Flu Sent. zm 14:00 Strep Sent. zm 14:00 COVID-19 SARS RT PCR (Document "Date of Onset" if Symptomatic) Sent. zm 15:04 Chest Pa And Lat (2 Views) XRAY In Process Unspecified. EDMS 17:00 No provider procedures requiring assistance completed. Patient did not have IV access aa5 during this emergency room visit. Administered Medications: 14:00 Drug: Zofran (Ondansetron) 4 mg Route: PO; aa5 14:30 Follow up: Response: No adverse reaction aa5 Outcome: 16:35 Discharge ordered by . kb 17:00 Discharged to home ambulatory. aa5 17:00 Condition: stable 17:00 Discharge instructions given to patient, Instructed on discharge instructions, follow up and referral plans. medication usage, Demonstrated understanding of instructions, follow-up care, medications, Prescriptions given X 1. 17:02 Patient left the ED. iw Signatures: Dispatcher [employer] EDMS Camilla Bowles, YARITZA KERR-Chio Ivory Irene RN Coby El RN RN aa5 Kaila Wheeler Corrections: (The following items were deleted from the chart) 18:51 13:33 GI: Abdomen is non-distended, Bowel sounds present X 4 quads. Abd is soft and non aa5 tender X 4 quads. Reports diarrhea, nausea, aa5
--- NOTE | 2022-01-16 16:36 | EDPHYS ---
Physician Documentation [facility] Name: Codie Garcia Age: 21 yrs Sex: Female : 2000 Arrival Date: 01/16/2022 Time: 13:25 Bed 12 Private MD: ED Physician Augusto Rivera HPI: 01/16 17:53 This 21 yrs old Female presents to ER via Ambulatory with complaints of Flu Symptoms. kb 17:53 The patient or guardian reports cough, that is intermittent, described as mild, flu kb symptoms, myalgias. Onset: The symptoms/episode began/occurred 2 day(s) ago. Severity of symptoms: At their worst the symptoms were mild, moderate, in the emergency department the symptoms are unchanged. Modifying factors: The symptoms are alleviated by nothing, the symptoms are aggravated by nothing. Associated signs and symptoms: Pertinent positives: diarrhea, nausea, sore throat, vomiting. The patient has not experienced similar symptoms in the past. The patient has not recently seen a physician. 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 ROS: 17:52 MS/Extremity: Negative for injury and deformity. kb 17:52 Constitutional: Positive for body aches, fatigue, malaise. 17:52 ENT: Positive for sinus congestion, sore throat. 17:52 Respiratory: Positive for cough. 17:52 Abdomen/GI: Positive for nausea, vomiting, and diarrhea, Negative for abdominal pain. 17:52 Neuro: Positive for headache. 17:52 All other systems are negative. Exam: 17:53 Constitutional: This is a well developed, well nourished patient who is awake, alert, kb and in no acute distress. Head/Face: Normocephalic, atraumatic. ENT: Moist Mucous membranes Cardiovascular: Regular rate and rhythm with a normal S1 and S2. No gallops, murmurs, or rubs. No pulse deficits. Respiratory: Respirations even and unlabored. No increased work of breathing. Talking in full sentences Abdomen/GI: Soft, non-tender. No distention Skin: Warm, dry with normal turgor. Normal color. MS/ Extremity: Pulses equal, no cyanosis. Neurovascular intact. Full, normal range of motion. Neuro: Awake and alert, GCS 15, oriented to person, place, time, and situation. Moves all extremities. Normal gait. Psych: Awake, alert, with orientation to person, place and time. Behavior, mood, and affect are within normal limits. Vital Signs: 13:33 BP 120 / 73; Pulse 85; Resp 20 S; Temp 98.9(O); Pulse Ox 99% on R/A; Weight 61.23 kg aa5 (R); Height 5 ft. 2 in. (157.48 cm) (R); 13:33 Body Mass Index 24.69 (61.23 kg, 157.48 cm) aa5 MDM: 13:33 Patient medically screened. kb 17:51 Data reviewed: vital signs, nurses notes. Data interpreted: Pulse oximetry: on room air kb is 99 %. Interpretation: normal. Counseling: I had a detailed discussion with the patient and/or guardian regarding: the historical points, exam findings, and any diagnostic results supporting the discharge/admit diagnosis, lab results, radiology results, the need for outpatient follow up, a family practitioner, to return to the emergency department if symptoms worsen or persist or if there are any questions or concerns that arise at home. ED course: Pt tolerating po intake. . 0612 13:34 Order name: Flu; Complete Time: 14:34 kb 01/16 13:34 Order name: Strep; Complete Time: 14:34 kb 01/16 13:34 Order name: COVID-19 SARS RT PCR (Document "Date of Onset" if Symptomatic); Complete kb Time: 16:20 01/16 13:34 Order name: Chest Pa And Lat (2 Views) XRAY; Complete Time: 15:36 kb 01/16 14:33 Order name: Throat Culture EDMS 01/16 16:21 Order name: PO challenge; Complete Time: 16:40 kb Administered Medications: 14:00 Drug: Zofran (Ondansetron) 4 mg Route: PO; aa5 14:30 Follow up: Response: No adverse reaction aa5 Disposition: 18:18 Co-signature as Attending Physician, Augusto Rivera MD I agree with the assessment and kdr plan of care. Disposition Summary: 01/16/22 16:35 Discharge Ordered Location: Home kb Condition: Stable kb Diagnosis - Nausea with vomiting, unspecified kb - Diarrhea, unspecified kb - Acute upper respiratory infection, unspecified kb Followup: kb - With: Emergency Department - When: As needed - Reason: Worsening of condition Followup: kb - With: Private Physician - When: 2 - 3 days - Reason: Recheck today's complaints, Continuance of care, Re-evaluation by your physician Discharge Instructions: - Discharge Summary Sheet kb - Viral Gastroenteritis, Adult, [id number] kb - Upper Respiratory Infection, Adult, [id number] kb - Viral Respiratory Infection, [id number] kb Forms: - Work release form kb - Medication Reconciliation Form kb - Thank You Letter kb - Antibiotic Education kb - Prescription Opioid Use kb Prescriptions: - Zofran 4 mg Oral Tablet - take 1 tablet by ORAL route every 6 hours As needed; 20 tablet; Refills: 0, kb Product Selection Permitted Signatures: Dispatcher [employer] EDMS Camilla Bowles, LAY OUT AND DETAIL DRAFTER-C CIRILO-Augusto Starr MD MD kdr Calderon, Audri, RN RN aa5
[2022-01-16 17:07] VITALS: BP 120/73; TEMP 98.9; O2SAT 99
== END 2022-01-16 17:02 | disposition home or self-care (01) ==
LOC: ER 13:22
DX: J06.9 Acute upper respiratory infection, unspecified (principal); R19.7 Diarrhea, unspecified; Z20.822 Contact with and (suspected) exposure to COVID-19
CPT/HCPCS: 71046; 87070; 87081; 87804; 99284; U0003